=== PATIENT | male | born 1960 | race Caucasian/White ===

== ENCOUNTER 2024-03-14 11:39 | Outpatient (CLI) | payer BC | END 2024-03-14 11:40 | disposition home or self-care (01) | LOC: SCSRAD 11:39 | PROVIDERS: ATTEND Family Medicine | DX: R10.30 Lower abdominal pain, unspecified (principal); R19.7 Diarrhea, unspecified | CPT/HCPCS: 74019 ==

== ENCOUNTER 2024-06-03 12:00 | Outpatient (CLI) | payer BC | END 2024-06-03 12:01 | disposition home or self-care (01) | LOC: SCSRAD 12:00 | PROVIDERS: ATTEND Family Medicine | DX: M79.672 Pain in left foot (principal) ==

== ENCOUNTER 2025-03-10 10:06 | Emergency (ER) | payer BC ==
[2025-03-10 10:38] LABS: #Basophils 0.03 10x3/uL (0.0-0.2); #Eosinophils 0.10 10x3/uL (0.0-0.7); #Monocytes 0.56 10x3/uL (0.11-0.59); #Neutrophils 6.08 10x3/uL (1.40-6.50); %Basophils 0.4 % (0.0-1.0); %Eosinophils 1.2 % (0.0-10.0); %Lymphocytes 18.1 % (21.0-51.0); %Monocytes 6.7 % (0.0-10.0); %Neutrophils 73.2 % (42.0-75.0); Hematocrit 43.3 % (42.0-52.0); Hemoglobin 15.2 g/dL (14.0-18.0); Mean Corpuscular Hemoglobin 29.8 pg (27.0-31.0); Mean Corpuscular Volume 84.9 fL (78.0-98.0); Platelet Count 274 10x3/uL (130-400); Red Blood Cell (RBC) Count 5.10 mill/uL (4.70-6.10); White Blood Cell (WBC) Count 8.30 10x3/uL (4.8-10.8)
[2025-03-10 10:47] LABS: ALT (SGPT) 40 U/L (Less than 45); AST (SGOT) 29 U/L (11-34); Albumin 4.5 g/dL (3.1-4.5); Alkaline Phosphatase 63 U/L (40-110); Anion Gap 13 mmol/L (10-20); BUN (Urea Nitrogen) 10 mg/dL (8.4-25.7); Bilirubin, Total 0.9 mg/dL (0.3-1.2); Calc. Creatinine Clearance 0 mL/min (70-130); Calcium 9.2 mg/dL (7.8-10.44); Carbon Dioxide 24 mmol/L (23-31); Chloride 104 mmol/L (98-107); Globulin 2.5 g/dL (2.4-3.5); Glucose 141 mg/dL (80-115); Potassium 4.1 mmol/L (3.5-5.1); Sodium 137 mmol/L (136-145)
== END 2025-03-10 13:32 | disposition home or self-care (01) ==
LOC: ERS 10:06
DX: R07.2 Precordial pain (principal); I10 Essential (primary) hypertension; E11.9 Type 2 diabetes mellitus without complications
CPT/HCPCS: 71045; 80053; 84484; 85025; 93005

== ENCOUNTER 2025-03-20 10:25 | Outpatient (CLI) | payer BC | END 2025-03-20 10:26 | disposition home or self-care (01) | LOC: SCSRAD 10:25 | PROVIDERS: ATTEND Family Medicine | DX: M25.562 Pain in left knee (principal) ==